=== PATIENT | female | born 1995 | race Hispanic/Latino ===

== ENCOUNTER 2018-11-17 06:20 | Inpatient (IN) | payer OTHER ==
[2018-11-17 07:09] VITALS: BMI 28.0
[2018-11-17] MEDS ORDERED: HYDROcodone/Acetaminophen 5/325 mg Tablet PO PRN ×4 (07:26→18:06)
[2018-11-17] MEDS ORDERED: Butorphanol Tartrate 1 MG/ML VIAL SLOW IVP PRN (07:26)
[2018-11-17] MEDS ORDERED: Lidocaine 1% (PF) 30 ML VIAL SC PRN (07:26)
[2018-11-17] MEDS ORDERED: Ibuprofen 800 MG TAB PO PRN (07:26)
[2018-11-17] MEDS ORDERED: Promethazine HCl 25 MG/ML VIAL IM PRN (07:26)
--- NOTE | 2018-11-17 07:31 | PDOC.LDHP ---
Labor and Delivery H&P HPI: Patient of Dr Chiara Camacho Here for Contractions HPI: 23 yo with one prior , now at 38 weeks 4 days with SOOL, no LOF. States ctx are every 3-5 minutes. Good FM, no VB, no COMER, no RUQ pain. Review of Systems: complete ROS performed and as per HPI Current gestational age (weeks): 38 (4 days) Due date: 11/27/18 Dating criteria: last menstrual period Grav: 2 Para: 1 OB History Details: x1 Current complications: none Abnormal US findings: No Past Medical History: none; GDM this Current medications: pre-nain vitamins, other (Metformin BID for GDM) Previous surgical history: none Allergies/Adverse Reactions: Allergies Allergy/AdvReac Type Severity Reaction Status Date / Time No Known Allergies Allergy Unverified 11/17/18 07:04 - Physical Exam Vital signs reviewed and normal: yes (107/78) General: NAD Heart: RRR Lungs: CTAB Abdomen: gravid Extremeties: no edema [place] contractions every: every 2-3 minutes - Vaginal Exam cm dilated: 4 (to 5cm) Effacement: 50% Station: -1 - Assessment L&D Assessment: term patient in labor GDM on oral metformin 500mg po BID - Plan Plan: admit to L&D, labor augmentation if indicated, informed consent obtained, anesthesia consult for pain management, other (GBS negative; check glucose now and in 2 hours)
[2018-11-17] MEDS: Lactated Ringer's 1,000 ML IV SCH ×2 (07:35→14:33)
[2018-11-17 08:21] LABS: Hemoglobin 11.5 g/dL (12.0-16.0); Mean Corpuscular HGB CONC 33.3 g/dL (32.0-36.0); Mean Corpuscular Hemoglobin 27.1 pg (27.0-31.0); Mean Corpuscular Volume 81.3 fL (78.0-98.0); Mean Platelet Volume 8.3 fL (7.4-10.4); Platelet Count 348 thou/uL (130-400); RBC Distribution Width 15.4 % (11.5-14.5); Red Blood Cell (RBC) Count 4.25 mill/uL (4.20-5.40); White Blood Cell (WBC) Count 8.4 thou/uL (4.8-10.8)
[2018-11-17 08:36] LABS: Glucose 88 mg/dL (70-105)
[2018-11-17 08:51] LABS: Syphilis Antibody Nonreactive (Nonreactive); Syphilis Antibody Index 0.04 S/CO (<1.00 Non-Reactive)
[2018-11-17 08:53] LABS: HIV (1/2) Antibody/Antigen Non-Reactive (NonReactive); HIV 1/2 INDEX 0.09 S/CO (<1.00); Hep B Surf Ag Non-Reactive S/CO (NonReactive)
--- NOTE | 2018-11-17 16:18 | PDOC.OPDEL ---
OB Operative/Delivery Note Delivery Dr/Surgeon: Janice Assist: n/a Pre-Delivery Diagnosis: active labor Procedure/Post Delivery Dx: spontaneous vaginal delivery Weeks gestation: 38 Anesthesia: none - Findings A Sex: male - 1 min: 8 - 5 min: 9 - Additional Findings/Plan Placenta delivered: spontaneous Repaired Obstetrical Laceration: 1st degree (hemostatic not repaired) Estimated blood loss: 100cc Compilations/Other Findings: AROM, pt C/C/0, adequate maternal pushing efforts, vigorous male cephalic , NC x 1 loose reduced at perineum, no dystocia, skin to skin, Delayed cord clamping, placenta delivered intact with gentle traction, 3VC. Uterus firm with pitocin. Post delivery plan: routine recovery
[2018-11-17] MEDS: NS / Oxytocin 40 units/1000ml 1,000 ML IV PRN ×2 (17:11→18:05)
[2018-11-17] MEDS ORDERED: Preparation H Ointment 28 GM TUBE PR PRN (18:06)
[2018-11-17] MEDS ORDERED: Ondansetron PF 4 MG/2 ML Vial IVP PRN (18:06)
[2018-11-17] MEDS ORDERED: diphenhydrAMINE 25 MG CAP PO PRN (18:06)
[2018-11-17] MEDS ORDERED: Bisacodyl 10 MG SUPP PR PRN (18:06)
[2018-11-17] MEDS ORDERED: Lanolin Ointment 7 GM TUBE TOP PRN (18:06)
[2018-11-17] MEDS ORDERED: Milk Of Magnesia 30 ML UDCUP PO PRN (18:06)
[2018-11-17] MEDS ORDERED: NS / Oxytocin 40 units/1000ml 1,000 ML IV SCH (18:06)
[2018-11-17] MEDS ORDERED: Benzocaine/Menthol 20-0.5% 60 ML CAN TOP PRN (18:06)
[2018-11-17] MEDS ORDERED: Adacel (T-DAP) 0.5 ML SYRINGE IM ONE (18:06)
[2018-11-17] MEDS ORDERED: Ferrous Sulfate 325 MG TAB PO SCH (18:15)
[2018-11-17] MEDS: Ibuprofen 800 MG TAB PO SCH (21:48)
[2018-11-17] MEDS: Docusate Calcium (SURFAK) 240 MG CAP PO SCH (21:48)
[2018-11-18] MEDS: Ibuprofen 800 MG TAB PO SCH ×2 (05:15→14:32)
--- NOTE | 2018-11-18 08:05 | PDOC.PP ---
Post Progress Note Post Day #: 1 PO intake tolerated: yes Flatus: yes Ambulation: yes Vital Signs (12 hours) Temp Pulse Resp BP Pulse Ox 11/18/18 05:00 97.7 F 88 18 101/56 L 11/18/18 00:50 98.2 F 83 18 100/58 L 11/17/18 20:30 98.0 F 91 16 100/56 L 98 Weight Weight 174 lb - Physical Examination General: NAD Cardiovascular: RRR Respiratory: non-labored breathing Abdominal: no distention, appropriately TTP Extremities: negative homans (B) Skin: no rash Neurological: no gross focal deficits Psychiatric: normal affect Result Diagrams: 11/17/18 07:35 11/17/18 07:35 Additional Labs: Post Labs Blood Type O POSITIVE 11/17/18 07:35 Hep Bs Antigen Non-Reactive S/CO (NonReactive) 11/17/18 07:35 - Assessment/Plan PPD1 s/p TSVD VSSAF Doing well, lochia < menses Rh pos RImm Cont PP care, home tomorrow
[2018-11-18 08:22] VITALS: BP 106/55; TEMP 98.2
[2018-11-18] MEDS ORDERED: Prenatal Vitamin 1 TAB PO SCH (09:00)
[2018-11-18] MEDS: Ferrous Sulfate 325 MG TAB PO SCH ×2 (09:41→18:15)
[2018-11-18] MEDS: Docusate Calcium (SURFAK) 240 MG CAP PO SCH (09:42)
== END 2018-11-18 18:40 | disposition home or self-care (01) | DRG 807 ==
LOC: L&D/OP 06:20 → L&D 07:59 → 3SW 18:33
PROVIDERS: ADMIT Student in an Organized Health Care Education/Training Program; ATTEND Student in an Organized Health Care Education/Training Program
PROC: 10E0XZZ Delivery of Products of Conception, External Approach (ICD-10-PCS; principal; 2018-11-17)
PROC: 10907ZC Drainage of Amniotic Fluid, Therapeutic from Products of Conception, Via Natural or Artificial Opening (ICD-10-PCS; 2018-11-17)
DX: O24.425 Gestational diabetes mellitus in childbirth, controlled by oral hypoglycemic drugs (principal); Z37.0 Single live birth; O69.81X0 Labor and delivery complicated by cord around neck, without compression, not applicable or unspecified; Z3A.38 38 weeks gestation of pregnancy; O70.0 First degree perineal laceration during delivery
CPT/HCPCS: 36416; 82947; 85027; 86780; 86850; 86900; 86901; 87340; 87389; 99285; J2001